=== PATIENT | female | born 1985 | race Caucasian/White ===

== ENCOUNTER 2024-01-06 00:42 | Inpatient (IN) | payer BC ==
[~2024-01-06] VITALS: Ht 154.9 cm; Wt 88.9 kg
[2024-01-06] MEDS ORDERED: METHYLERGONOVINE 0.2 MG/ML AMP IM PRN ×2 (01:25→12:40)
[2024-01-06] MEDS ORDERED: CARBOPROST 250 MCG/ML AMP IM PRN (01:25)
[2024-01-06 01:54] LABS: BASOPHILS # (AUTO) 0.1 K/uL (0.00-0.22); BASOPHILS % (AUTO) 0.5 % (0.0-2.0); EOSINOPHILS # (AUTO) 0.2 K/uL (0-0.4); EOSINOPHILS % (AUTO) 2.1 % (0.0-4.0); HEMATOCRIT 33.8 % (36-48); HEMOGLOBIN 11.4 g/dL (12.0-16.0); LYMPHOCYTES # (AUTO) 2.2 K/uL (2.5-16.5); LYMPHOCYTES % (AUTO) 19.9 % (20.5-51.1); MEAN CORPUSCULAR HEMOGLOBIN 27 pg (27-31); MEAN CORPUSCULAR HGB CONC 34 g/dL (33-37); MONOCYTES # (AUTO) 0.7 K/uL (0.8-1.0); MONOCYTES % (AUTO) 6.4 % (1.7-9.3); NEUTROPHILS # (AUTO) 7.8 K/uL (1.8-7.7); NEUTROPHILS % (AUTO) 71.1 % (42.2-75.2); PLATELET COUNT (AUTO) 181 K/uL (140-450); RED BLOOD CELL COUNT(AUTO) 4.22 MIL/uL (4.20-5.40); RED CELL DISTRIBUTION WIDTH 16.1 % (11.6-13.7)
[2024-01-06] MEDS ORDERED: AMPICILLIN 2,000 MG VIAL ONE (02:00)
[2024-01-06] MEDS: LACTATED RINGERS 1,000 ML IV SCH (02:03)
[2024-01-06] MEDS: AMPICILLIN 2,000 MG in NACL 0.9% MINI-BAG PLUS 100 ML IV ONE (02:04)
[2024-01-06 02:07] LABS: APPEARANCE,URINE CLEAR (CLEAR); BILIRUBIN,URINE NEGATIVE (NEGATIVE); BLOOD, URINE 3+ (NEGATIVE); COLOR,URINE YELLOW (YELLOW); LEUKOCYTE ESTERASE ,URINE TRACE (NEGATIVE); NITRITE, URINE NEGATIVE (NEGATIVE); PROTEIN,URINE TRACE (NEGATIVE); UGLUCOSE NEGATIVE (NEGATIVE); UROBILINOGEN,URINE 0.2 EU/dL (0.2 - 1)
[2024-01-06 02:07] LABS: INR 0.87 (0.8-1.2); PARTIAL THROMBOPLASTIN TIME 24.4 secs (22-35.6); PROTHROMBIN TIME 9.2 secs (10.8-13.4)
[2024-01-06 02:09] LABS: ALBUMIN 2.3 g/dL (3.4-5.0); ANION GAP 15.3 (8-16); CARBON DIOXIDE 22.9 mmol/L (21-32); CREATININE 0.6 mg/dL (0.6-1.3); POTASSIUM 4.2 mmol/L (3.5-5.1); TOTAL BILIRUBIN 0.2 mg/dL (0.0-1.0); TOTAL PROTEIN, SERUM 6.1 g/dL (6.4-8.2)
[2024-01-06 02:11] LABS: BACTERIA,URINE 10-30 (MOD) /HPF (None Seen); MUCUS,URINE 1+ /LPF (None Seen); SQUAMOUS EPITHELIAL CELL,UR 4-10 (MOD) /LPF (0-3 (FEW))
[2024-01-06] MEDS ORDERED: PRETAB PO (02:19)
[2024-01-06 02:21] VITALS: BP 147/74; PULSE 63; RESP 18; TEMP 98.1
[2024-01-06] MEDS: ONDANSETRON 4 MG/2 ML VIAL IVP PRN (02:54)
[2024-01-06] MEDS: NALBUPHINE 10 MG/ML AMP IVP PRN (02:55)
[2024-01-06] MEDS ORDERED: ROPIVACAINE 0.2%/NS PREMIX 200 ML EPI ONE (03:03)
[2024-01-06 03:29] LABS: AMPHETAMINE, URINE NEGATIVE ng/ml (NEG <=1000); BARBITURATE, URINE NEGATIVE ng/ml (NEG <=200); BENZODIAZEPINE, URINE NEGATIVE ng/mL (NEG <=200); CANNABINOID, URINE NEGATIVE ng/mL (NEG <=50); COCAINE, URINE NEGATIVE ng/mL (NEG <=300); OPIATE, URINE NEGATIVE ng/mL (NEG <=2000); PHENCYCLIDINE SCREEN,URINE NEGATIVE ng/mL (NEG <=25)
[2024-01-06] MEDS: AMPICILLIN 1,000 MG in NACL 0.9% MINI-BAG PLUS 50 ML IV SCH (06:00)
[2024-01-06] MEDS: OXYTOCIN/0.9 % SODIUM CHLORIDE 500 ML IV SCH (06:01)
[2024-01-06] MEDS: diphenhydrAMINE 50 MG/ML VIAL IVP ONE (06:20)
[2024-01-06] MEDS ORDERED: BENZOCAINE/MENTHOL 20%-0.5% 60 GM CAN TP PRN (12:40)
[2024-01-06] MEDS ORDERED: IBUPROFEN 800 MG TAB PO PRN (12:40)
[2024-01-06] MEDS ORDERED: OXYTOCIN 10 UNITS/ML VIAL IM PRN (12:40)
[2024-01-06] MEDS ORDERED: oxyCODONE/APAP 5/325 MG 1 TAB TAB PO PRN ×2 (12:40)
[2024-01-06] MEDS ORDERED: TEMAZEPAM 15 MG CAP PO PRN (12:40)
[2024-01-06] MEDS: DOCUSATE SOD/SENNA 50/8.6 MG 1 TAB PO SCH (21:14)
[2024-01-07 05:31] LABS: HEMOGLOBIN 10.7 g/dL (12.0-16.0)
== END 2024-01-07 13:45 | disposition home or self-care (01) | DRG 807 ==
LOC: UNDOADMOB 00:42 → MLD 00:42 → OBSVTOIN 01:29 → MFCC 16:40
PROVIDERS: ADMIT Obstetrics & Gynecology; ATTEND Obstetrics & Gynecology
PROC: 10E0XZZ Delivery of Products of Conception, External Approach (ICD-10-PCS; principal; 2024-01-06)
PROC: 0UQGXZZ Repair Vagina, External Approach (ICD-10-PCS; 2024-01-06)
DX: O71.4 Obstetric high vaginal laceration alone (principal); Z37.0 Single live birth; Z3A.39 39 weeks gestation of pregnancy; Z20.822 Contact with and (suspected) exposure to COVID-19
CPT/HCPCS: 36415; 51702; 59409; 80053; 80305; 81001; 85018; 85025; 85610; 85730; 86592; 86762; 86886; 86900; 86901; 87086; 87340; 87653-90; J0290; J1200; J2300; J2405; J2590; J2795; J7120